=== PATIENT | female | born 1935 | race Caucasian/White ===

== ENCOUNTER 2018-07-05 08:45 | Day surgery (SDC) | payer MEDICARE, OTHER ==
[~2018-07-05 08:45] MED LIST: LIDOCAINE HCL 1% MPF 30 SOL ONE; PROPOFOL 500 MG/50 ML EMU IV ONE
[2018-07-05 10:18] VITALS: PULSE 56; RESP 20; TEMP 97.6; O2SAT 98
[2018-07-05 10:22] VITALS: BP 172/70
== END 2018-07-05 10:35 | disposition home or self-care (01) | DRG 951 ==
LOC: SURG 08:45
PROVIDERS: ATTEND Surgery
DX: Z12.11 Encounter for screening for malignant neoplasm of colon (principal); D50.9 Iron deficiency anemia, unspecified; Z80.0 Family history of malignant neoplasm of digestive organs; R19.7 Diarrhea, unspecified; Z86.010 Personal history of colon polyps
CPT/HCPCS: J2001; J2704